=== PATIENT | female | born 1970 | race Asian ===

== ENCOUNTER 2018-05-24 15:28 | Emergency (ER) | payer SELFPAY ==
[2018-05-24 16:16] VITALS: BP 122/86
--- NOTE | 2018-05-24 17:02 | UC ---
Eye Complaint HPI - HPI Summary HPI Summary: Pt states over the past - History of Current Complaint Chief Complaint: UCEye Stated Complaint: EYE IRRITATION Time Seen by Provider: 05/24/18 16:21 Hx Obtained From: Patient ?: No Onset/Duration: Gradual Onset, Other - Over the past few months but feels her vision worsened today and became more blurry. Timing: Constant Severity Initially: Mild Severity Currently: Mild Pain Intensity: 0 Location of Injury: Other - No injury Aggravating Factor(s): Nothing Alleviating Factor(s): Nothing - States when she looks at something she only see half of it, like the lower half. Associated Signs And Symptoms: Positive: Negative Related History: Similar Episode - Risk Factors Penetrating Injury Risk Factor: Negative Globe Rupture Risk Factors: Negative Acute Glaucoma Risk Factors: Negative Optic Artery Occlusion Risk Factors: Negative - Allergies/Home Medications Allergies/Adverse Reactions: Allergies Allergy/AdvReac Type Severity Reaction Status Date / Time No Known Allergies Allergy Verified 05/24/18 16:04 Home Medications: Home Medications Vit A and D3 in Cod Liver Oil [Cod Liver Oil W/Vitamins] 1 cap PO 05/24/18 [ History] Vit B Complex 100 Combo No.2 [Balanced B-100] 100 mg PO 05/24/18 [History] PMH/Surg Hx/FS Hx/Imm Hx Previously Healthy: Yes - Surgical History Surgical History: None - Social History Alcohol Use: None Substance Use Type: None Smoking Status (MU): Never Smoked Tobacco - Immunization History Most Recent Tetanus Shot: UTD Review of Systems All Other Systems Reviewed And Are Negative: Yes Constitutional: Positive: Negative Skin: Positive: Negative Eyes: Positive: Blurred Vision, Other - Occasional double vision when holding things up close. Denies any black curtain, states occasional black dots that float across left visual field. Vision with glasses 20/200 left and 20/50 right ENT: Positive: Negative Respiratory: Positive: Negative Cardiovascular: Positive: Negative Gastrointestinal: Positive: Negative Genitourinary: Positive: Negative Motor: Positive: Negative Neurovascular: Positive: Negative Musculoskeletal: Positive: Negative Neurological: Positive: Negative Psychological: Positive: Negative Is Patient Immunocompromised?: No Physical Exam Triage Information Reviewed: Yes Appearance: Well-Appearing, No Pain Distress, Well-Nourished Vital Signs: Initial Vital Signs Temp 98.6 F 05/24/18 16:04 Pulse 88 05/24/18 16:04 Resp 17 05/24/18 16:04 BP 122/86 05/24/18 16:04 Pulse Ox 100 05/24/18 16:04 Vital Signs Reviewed: Yes Eye Exam: Normal - PERRLA< EOMI ENT Exam: Normal Neck exam: Normal Respiratory Exam: Normal Cardiovascular Exam: Normal Abdominal Exam: Normal Bowel Sounds: Positive: Present Musculoskeletal Exam: Normal Neurological Exam: Normal Neurological: Positive: Alert - CN II-XII intact, good finger to nose bilaterally, normal dystidiokinesia, no eye drift, Rhomberg negative, good heel to toe forward and backward, good heel to manuel bilaterally, god arm and leg strength against resistance, reflexes +2 at the knees, full ROM extremities., Muscle Tone Normal Psychological Exam: Normal Skin Exam: Normal Eye Complaint Course/Dx - Course Course Of Treatment: Pt comfortable here. Dr. Zhao also spoke with patient. Neurologically intact. CT Brain results:CT of the brain performed without IV contrast. Ventricular structures are midline. No midline shift is noted. The extra-axial spaces are. unremarkable. There is no evidence of intracranial mass or hemorrhage. No other high or. low density lesions are identified. Mastoid air cells and paranasal sinuses are otherwise unremarkable. IMPRESSION : No intracranial mass or hemorrhage is noted. Will send pt to ophthamology and disaster recovery manager... she is to call [facility] and make an appointment. - Differential Dx/Diagnosis Differential Diagnosis/HQI/PQRI: Other Provider Diagnosis: Visual field defect of left eye - Physician Notification/Consults Discussed Patient Care With: Catherine Zhao Time Discussed With Above Provider: 17:10 Discharge - Sign-Out/Discharge Documenting (check all that apply): Patient Departure All imaging exams completed and their final reports reviewed: Yes - Discharge Plan Condition: Good Disposition: HOME Patient Education Materials: Blurred Vision (ED), Visual Floaters (ED) Referrals: No Primary Care Phys,NOPCP [Primary Care Provider] - Additional Instructions: Tomorrow you are to call the ophthamologist Dr. Cantu at [phone] Smith at [phone]. You are alos to follow up with an disaster recovery manager to have your glasses rechecked. Go to the ER if you have any worsening symptoms. The CT Scan of your Brain was normal. - Billing Disposition and Condition Condition: GOOD Disposition: Home
== END 2018-05-24 18:02 | disposition home or self-care (01) ==
LOC: UCEAST 15:28
DX: H53.40 Unspecified visual field defects (principal)
CPT/HCPCS: 70450; 99202; G0463